=== PATIENT | female | born 1995 | race Caucasian/White ===

== ENCOUNTER 2024-08-05 18:22 | Emergency (ER) | payer OTHER, SELFPAY ==
[2024-08-05 18:25] VITALS: BP 124/87
[2024-08-05] MEDS: DILAUDID 1 MG IM (20:01)
[2024-08-05] MEDS: DELTASONE 60 MG PO (20:01)
[2024-08-05 20:06] VITALS: BP 139/86
--- NOTE | 2024-08-05 20:44 | ED.GENMED ---
History of Present Illness
General
Chief Complaint: Back Pain
Time Seen by Provider: 08/05/24 18:32
History of Present Illness
History of Present Illness:
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 Over the past 2 to 3 weeks she has had radiating pain to bilateral arms
and bilateral legs. Seems to be worse with walking. Denies any chest pain or shortness of breath. No loss of urinary continence.
Past History
Past History
ED Past Medical History: None; Negative Asthma, HTN, Hypercholesterolemia or NIDDM
ED Past Surgical History: None
Social History
Tobacco: Non-smoker
Alcohol: Occasional (`)
Drug: Marijuana
Personal: Single
Review of Systems
Review of Systems
Allergies reviewed?: Yes
All Other Systems: ROS reviewed and negative except as documented in HPI and ROS
Phy Exam
Physical Exam
Physical Exam:
GEN: Well appearing, NAD, WDWN
HEENT: Oral mucosa moist, no scleral icterus
Cardiac: Regular rate
Lung: No respiratory distress, no tachypnea
MSK: No gross deformity or injuries. Scoliotic spine. Diffuse tenderness to the paraspinous musculatures through the thoracic and lumbar spine. Bilateral upper and lower extremity strength and sensation is intact in all cordova and symmetric
Skin: Good color, no pallor or jaundice, no rashes
Neuro: AO x3, moves all extremities freely
Psych: Calm, cooperative
Course
Orders/Labs/Results
Orders:
Orders
08/05/24 18:47
HYDROmorphone [Dilaudid] 1 mg IM NOW STA
Prednisone [Deltasone] 60 mg PO NOW STA
Vital Signs
Initial and Last Documented VS:
Initial Vital Signs
Temp Pulse Resp BP Pulse Ox
98.4 F 92 16 124/87 98
08/05/24 18:25 08/05/24 18:25 08/05/24 18:25 08/05/24 18:25 08/05/24 18:25
Last Documented Vital Signs
Temp Pulse Resp BP Pulse Ox
98.4 F 71 18 124/95 98
08/05/24 18:25 08/05/24 20:46 08/05/24 20:46 08/05/24 20:46 08/05/24 20:46
MDM/Problems Addressed
MDM/Problems Addressed:
Pain improved with injection of Dilaudid. She indicates to me that she cannot tolerate the pain despite use of NSAIDs and muscle relaxants at home. Will treat with a course of steroids and recommend outpatient physical therapy and primary care
follow-up. At this time she has no neurologic weakness but does have radiculopathy, will hopefully benefit from steroids. No indication for imaging
*Critical Care Note
Total Time (30-74mins, 75-104mins- exclusive of procedures): Not Applicable
ED Attending Note
-
Portions of this chart may have been created with voice recognition software.� Occasional wrong word or��sound alike� substitutions may have occurred due to the inherent limitations of voice recognition software.
Discharge Plan
Departure
Patient Disposition: Home (Routine Discharge)
Date of Disposition: 08/05/24
Time of Disposition: 20:44
Patient with high blood pressure during this ER visit?: No
Discharge Problem:
Back pain
Instructions: Radiculopathy (DC)
Prescriptions:
New
hydromorphone 2 mg tablet
2 mg PO Q6H PRN (Reason: Pain) Qty: 10 0RF
prednisone 10 mg tablet
10 mg PO DIRECTED Qty: 37 0RF
Rx Instructions:
Once daily as directed: 60, 50, 50, 40, 40, 30, 30, 20, 20, 10, 10, 5, 5
No Action
prednisone 20 MG tablet
40 mg PO DAILY Qty: 10 0RF
Referrals:
NONE,* [Family Provider] -
Interventions
Interventions:
*Risk Screen - Suicide Last Done: 08/05/24 18:25
*General Assessment Last Done: 08/05/24 18:25
*ED COVID-19 Vaccine History Last Done: 08/05/24 18:25
*Nursing Disposition Last Done: 08/05/24 20:52
ED-Musculoskeletal Assessment Last Done: 08/05/24 20:21
Discharge Date and Time
Discharge Date/Time: 08/05/24 20:54
Print Language: [id number]
[2024-08-05 20:46] VITALS: BP 124/95
== END 2024-08-05 20:54 | disposition home or self-care (01) ==
LOC: EMR 18:22
PROVIDERS: EMERGENCY PHYSICIAN Emergency Medicine
DX: M54.50 Low back pain, unspecified (principal); M54.6 Pain in thoracic spine
CPT/HCPCS: 96372; 99284

== ENCOUNTER → 2024-08-18 12:58 | Outpatient (REF) | payer OTHER, SELFPAY | LOC: MRI 3T 12:58 | PROVIDERS: ATTENDING PHYSICIAN Physician Assistant | DX: Q79.60 Ehlers-Danlos syndrome, unspecified (principal); M54.9 Dorsalgia, unspecified; M54.41 Lumbago with sciatica, right side; M54.42 Lumbago with sciatica, left side; M42.00 Juvenile osteochondrosis of spine, site unspecified | CPT/HCPCS: 72146 ==

== ENCOUNTER → 2024-08-19 12:35 | Outpatient (REF) | payer OTHER, SELFPAY | LOC: MRI 3T 12:35 | PROVIDERS: ATTENDING PHYSICIAN Physician Assistant | DX: Q79.60 Ehlers-Danlos syndrome, unspecified (principal); M54.9 Dorsalgia, unspecified; M54.41 Lumbago with sciatica, right side; M54.42 Lumbago with sciatica, left side; M42.00 Juvenile osteochondrosis of spine, site unspecified | CPT/HCPCS: 72141; 72148 ==

== ENCOUNTER → 2024-09-14 14:42 | Outpatient (REF) | payer OTHER, SELFPAY | LOC: EMG 14:42 | PROVIDERS: ATTENDING PHYSICIAN Nurse Practitioner; FAMILY PHYSICIAN Physician Assistant | DX: M42.0 Juvenile osteochondrosis of spine (principal); M54.16 Radiculopathy, lumbar region; M54.12 Radiculopathy, cervical region; R20.0 Anesthesia of skin | CPT/HCPCS: 95886; 95911 ==

== ENCOUNTER → 2024-11-14 10:28 | Outpatient (REF) | payer OTHER, SELFPAY | LOC: HWRAD 10:28 | PROVIDERS: ATTENDING PHYSICIAN Obstetrics & Gynecology; FAMILY PHYSICIAN Physician Assistant | DX: N92.0 Excessive and frequent menstruation with regular cycle (principal) | CPT/HCPCS: 76830; 76856 ==

== ENCOUNTER → 2025-03-29 14:41 | Outpatient (REF) | payer OTHER, SELFPAY | LOC: EMG 14:41 | PROVIDERS: ATTENDING PHYSICIAN Nurse Practitioner | DX: M42.0 Juvenile osteochondrosis of spine (principal); M54.16 Radiculopathy, lumbar region; R20.0 Anesthesia of skin | CPT/HCPCS: 95886; 95909 ==